=== PATIENT | female | born 1965 | race African-American/Black ===

== ENCOUNTER → 2020-03-28 | Outpatient (CLI) | payer OTHER ==
[~2020-03-28] MED LIST: ASA81BEC PO; GABAPENTIN 100100 MG PO; HYDRALAZINE 2525 MG PO; IRON325 PO; LOPRESSOR100 M1 PO; MULTIVITAMINS1 EAC6 PO; NORCO 5-325 TA1 EAC2 PO; NORVASC 2.5 MG2.5 M1 PO; SODIUM BICARBO650 M3 PO; VITAMIN D350 MC1 PO; VITAMIN K PO
== END ==
LOC: M.LAB 15:22
PROVIDERS: ATTEND Surgery Vascular Surgery
DX: Z01.812 Encounter for preprocedural laboratory examination (principal); Z11.59 Encounter for screening for other viral diseases

== ENCOUNTER → 2020-04-23 | Day surgery (SDC) | payer OTHER ==
[2020-04-23 12:53] LABS: HEMATOCRIT 27.9 % (37.0-47.0); HEMOGLOBIN 9.3 gm/dL (12.0-15.0); MCH 26.8 pg (26.0-34.0); MCHC 33.2 g/dL (28.0-37.0); MCV 80.5 fL (80.0-100.0); MPV 8.1 fl. (7.2-11.1); RBC 3.47 mil/uL (4.20-5.00); RDW-CV 14.5 % (10.5-14.5); WBC 10.2 thou/uL (4.0-11.0)
[2020-04-23 12:57] LABS: CALCIUM 7.8 mg/dL (8.5-10.1); CREATININE 7.6 mg/dL (0.6-1.3); POTASSIUM 4.2 mmol/L (3.5-5.1)
--- NOTE | 2020-04-23 13:52 | EKG ---
[place] [address] ELECTROCARDIOGRAM REPORT Name: YVAN BETANCOURT Room: [facility]#: [id number] Admission: 04/23/20 Attend Phys: Catrachito Omalley MD Discharge: Date of : 63 Date of Service: 04/23/20 1303 Report #: [id number] THIS REPORT FOR: //name// [facility] Test Date: 2020-04-23 Test Time: 13:03:13 Pat Name: YVAN BETANCOURT Department: Room: Gender: [employer]: : 1965 Requested By: Catrachito Omalley Order Number: [id number] Reading MD: Tino Haro Measurements Intervals [place] Rate: 80 P: 70 MO: 164 QRS: 31 QRSD: 92 T: 83 QT: 427 QTc: 493 Interpretive Statements Sinus rhythm Borderline prolonged QT interval No previous ECG available for comparison Electronically Signed On 04-23-2020 13:52:10 CDT by Tino Haro [email or web address] <ELECTRONICALLY SIGNED> By: Tino Haro MD, [facility] 04/23/20 1352 1303 1303 Tino Haro MD, FACC /EPI
--- NOTE | 2020-04-25 16:00 | OP ---
[address] [address] OPERATIVE REPORT Name: YVAN BETANCOURT Room: [facility]#: [id number] Admission: 04/23/20 Attend Phys: Catrachito Omalley MD Discharge: Date of : 63 Report #: [id number] THIS REPORT FOR: //name// cc: Manuel Rivera Bradley L. DO ~ THIS REPORT FOR: //name// CC: Manuel Omalley DATE OF SERVICE: 04/23/2020 PREOPERATIVE DIAGNOSIS: End-stage renal disease. POSTOPERATIVE DIAGNOSIS: End-stage renal disease. PROCEDURE: Left upper extremity brachioaxillary AV graft placement. SURGEON: Catrachito Omalley MD DATA CONVERSION OPERATOR: Dr. Dozier, Resident year IV. COMPLICATIONS: None. ESTIMATED BLOOD LOSS: 100 mL. SPECIMEN: None. ANESTHESIA: General. INDICATIONS FOR PROCEDURE: The patient is a very pleasant 54-year-old -[place] female who is well known to me. She has peripheral arterial disease, which I follow her for. She has end-stage renal disease and is nearing dialysis. She will require an access. Vein mapping shows no usable veins, bilateral upper extremities. We plan for a primary AV graft today. Informed consent was obtained from the patient with risks including but not limited to bleeding, infection, need for further surgery, pain, , heart attack, stroke, steal syndrome. The patient understood these risks and was agreeable to proceed. DESCRIPTION OF PROCEDURE: The patient was taken to the OR and placed in supine position. Left arm was prepped and draped in usual sterile fashion after general anesthesia was initiated. Timeout was performed. I created a longitudinal incision just above the antecubital fossa as well as a longitudinal incision in the patient's left axilla. Sharp and blunt dissections were carried down to the brachial artery within the distal [place] [address] OPERATIVE REPORT Name: YVAN BETANCOURT Room: [facility]#: [id number] Admission: 04/23/20 Attend Phys: Catrachito Omalley MD Discharge: Date of : 63 Report #: [id number] dissections were carried down to the axillary vein within the proximal incision. We tunneled a 4-7 mm tapered Acuseal graft between the two incisions. The 4 mm limb was down to the brachial artery and the 7 mm limb was up by the axillary vein. We trimmed and spatulated the graft at each location. I created a longitudinal arteriotomy in the brachial artery and created end-to-side anastomosis using a running 6-0 Prolene suture. At the completion of anastomosis, there was adequate hemostasis. Excellent blood flow through the graft. In similar fashion, I created a longitudinal venotomy in the axillary vein. I created end-to-side anastomosis using a running 6-0 Prolene suture. At completion of anastomosis, there was adequate hemostasis and excellent blood flow through the AV graft with a palpable thrill. There was no bleeding. Of note, I did heparinize the patient throughout the critical portions of the procedure. We controlled bleeding as needed with electrocautery, ties, clips and Romain. We closed the wound in multiple layers using 3-0 Vicryl and Monocryl for the skin. Incisions were dressed with Dermabond. The patient was taken alert and awake to recovery room in good condition. All needle and instrument counts were correct at the end of the case. <ELECTRONICALLY SIGNED> By: Catrachito Omalley MD 04/25/20 1600 1506 1520Catrachito Omalley MD /nt
== END | disposition home or self-care (01) ==
LOC: M.SUR 04-02 11:41
PROVIDERS: ATTEND Surgery Vascular Surgery
DX: I12.0 Hypertensive chronic kidney disease with stage 5 chronic kidney disease or end stage renal disease (principal); E11.22 Type 2 diabetes mellitus with diabetic chronic kidney disease; N18.6 End stage renal disease; E78.00 Pure hypercholesterolemia, unspecified; Z98.890 Other specified postprocedural states; Z79.899 Other long term (current) drug therapy; Z87.19 Personal history of other diseases of the digestive system; Z90.710 Acquired absence of both cervix and uterus; Z88.8 Allergy status to other drugs, medicaments and biological substances

== ENCOUNTER → 2020-08-15 | Day surgery (SDC) | payer OTHER ==
--- NOTE | ~2020-08-15 | OP ---
[facility] [address] [place] [address] OPERATIVE REPORT Name: YVAN BETANCOURT Room: [facility]#: [id number] Admission: 08/15/20 Attend Phys: Raymundo Belcher Discharge: Date of : 63 Report #: [id number] THIS REPORT FOR: //name// cc: KLAUS NICOLE MD Physician not on staff ~ CC: KLAUS Belcher Physician staff DATE OF SERVICE: 08/15/2020 PREOPERATIVE DIAGNOSIS: End-stage renal disease. POSTOPERATIVE DIAGNOSIS: End-stage renal disease. OPERATION: 1. Laparoscopic placement of tunneled intraperitoneal catheter. 2. Laparoscopic omentopexy. SURGEON: Raymundo Belcher MD ANESTHESIA: General. ESTIMATED BLOOD LOSS: Minimal. SPECIMEN: None. DESCRIPTION OF PROCEDURE: After informed consent was obtained, the patient was brought to the operating room and placed supine. SCDs were placed and working, preoperative antibiotics were administered, general anesthesia was induced. The abdomen was prepped and draped in the usual sterile fashion. A 5 mm incision was made in the left upper quadrant. A 5 mm trocar was placed under direct vision. Pneumoperitoneum was established. Left-sided 5 mm trocar was placed. An 8 mm trocar was placed in the left rectus sheath. The omentum was then grasped and retracted superiorly. It was tacked to the right upper quadrant using a PMI suture passer and a 0 Vicryl suture to pass through the omentum and then back up through the abdominal wall. Through these sutures were placed. This kept the omentum out of the pelvis. A 62 cm Covidien catheter was then placed through the 8 mm trocar. The tip was then placed down the pelvis. It was then tunneled to the left upper quadrant of the abdomen with a tunneling device. The internal cuff was placed into the rectus sheath under direct vision. The ports were then removed. The catheter flushed easily with [address] [place] [address] OPERATIVE REPORT Name: YVAN BETANCOURT Room: [facility]#: [id number] Admission: 08/15/20 Attend Phys: Raymundo Belcher Discharge: Date of : 63 Report #: [id number] heparinized saline. It drained easily as well. The skin was then closed with 4-0 Monocryl. Incisions were dressed with Steri-Strips and gauze. COMPLICATIONS: None. DISPOSITION: The patient was taken to recovery in satisfactory condition. By: 1239 1322Raymundo Belcher MD /nt
[2020-08-15 10:48] LABS: HEMATOCRIT 32.9 % (37.0-47.0); HEMOGLOBIN 10.5 gm/dL (12.0-15.0); MCH 27.7 pg (26.0-34.0); MCHC 31.9 g/dL (28.0-37.0); MPV 7.8 fl. (7.2-11.1); RBC 3.78 mil/uL (4.20-5.00); RDW-CV 20.2 % (10.5-14.5); WBC 6.9 thou/uL (4.0-11.0)
[2020-08-15 10:54] LABS: CALCIUM 8.5 mg/dL (8.5-10.1); CREATININE 4.7 mg/dL (0.6-1.3); POTASSIUM 4.6 mmol/L (3.5-5.1)
== END | disposition home or self-care (01) ==
LOC: M.SUR 05:34
PROVIDERS: ATTEND Surgery
DX: I12.0 Hypertensive chronic kidney disease with stage 5 chronic kidney disease or end stage renal disease (principal); N18.6 End stage renal disease; I25.10 Atherosclerotic heart disease of native coronary artery without angina pectoris; Z79.82 Long term (current) use of aspirin; Z79.899 Other long term (current) drug therapy; Z99.2 Dependence on renal dialysis; Z20.828 Contact with and (suspected) exposure to other viral communicable diseases; Z98.890 Other specified postprocedural states